=== PATIENT | male | born 1985 | race Caucasian/White ===

== ENCOUNTER 2016-10-23 09:30 | Emergency (ER) | payer MEDICAID ==
[~2016-10-23] VITALS: Ht 185.4 cm; Wt 136.1 kg
[~2016-10-23 09:30] MED LIST: METOPROLOL
[2016-10-23 09:49] VITALS: BP 146/98
[2016-10-23] MEDS ORDERED: IBUPROFEN 600 MG TAB PO ONE (10:30)
[2016-10-23] MEDS ORDERED: KETOROLAC TROMETH 60MG/2ML VIAL IM ONE (10:30)
== END 2016-10-23 11:31 | disposition home or self-care (01) ==
LOC: ER 09:34
DX: M25.562 Pain in left knee (principal); F17.210 Nicotine dependence, cigarettes, uncomplicated; F11.10 Opioid abuse, uncomplicated; I10 Essential (primary) hypertension; Z87.442 Personal history of urinary calculi
CPT/HCPCS: 73562; 96372; 99284; J1885

== ENCOUNTER 2016-11-22 10:02 | Emergency (ER) | payer MEDICAID ==
[~2016-11-22] VITALS: Ht 185.4 cm; Wt 140.6 kg
[2016-11-22] MEDS ORDERED: diphenhdrAMINE HCL 50 MG/1 ML VL ONE (10:04)
[2016-11-22] MEDS ORDERED: LORazepam 2MG/ML-1ML VIAL ONE (10:05)
[2016-11-22] MEDS ORDERED: SODIUM CHLORIDE 0.9% 1,000 ML IV ONE (10:06)
[2016-11-22] MEDS ORDERED: LORazepam 2MG/ML-1ML VIAL IV ONE (10:15)
[2016-11-22] MEDS ORDERED: diphenhdrAMINE HCL 50 MG/1 ML VL IV ONE ×2 (10:15→10:45)
[2016-11-22 10:16] LABS: Basophils # (auto) 0.1 uL; Basophils % (auto) 0.6 % (0.0-2.0); CONDITION Y; Eosinophils # (auto) 0 uL; Eosinophils % (auto) 0.2 % (0.0-7.0); Hematocrit 47.8 % (41.0-53.0); Hemoglobin 16.4 g/dL (13.5-17.5); Lymphocytes # (auto) 4.5 uL; Lymphocytes % (auto) 31.5 % (10.0-50.0); Mean Corpuscular Hemoglobin 30.5 pg (28.0-32.0); Mean Corpuscular Hgb Conc. 34.4 g/dL (32.0-36.0); Mean Corpuscular Volume 88.5 fL (80.0-100.0); Mean Platelet Volume 8.1 fL (7.4-10.4); Monocytes # (auto) 1.1 uL; Monocytes % (auto) 7.8 % (0.0-12.0); Neutrophils # (auto) 8.6 uL; Neutrophils % (auto) 59.9 % (37.0-80.0); Platelet Count (auto) 431 10^3/uL (140-450); Red Cell Distribution Width 14.1 % (11.6-16.0); White Blood Cell 14.4 10^3/uL (4.4-10.8)
[2016-11-22 10:27] VITALS: BP 116/84
[2016-11-22] MEDS ORDERED: HALOPERIDOL LACTATE 5 MG/ML INJ VIAL ONE (10:32)
[2016-11-22 10:35] LABS: Albumin 3.8 g/dL (3.4-5.0); BUN/Creatinine Ratio 8.3; Calcium 8.7 mg/dL (8.5-10.1); Potassium 3.4 mmol/L (3.5-5.1)
[2016-11-22 10:37] LABS: Bilirubin, Total 0.5 mg/dL (0.2-1.0); Total Protein 7.5 g/dL (6.4-8.2)
[2016-11-22] MEDS ORDERED: HALOPERIDOL LACTATE 5 MG/ML INJ VIAL IM ONE (10:45)
== END 2016-11-22 12:06 | disposition home or self-care (01) ==
LOC: ER 10:02
DX: F12.10 Cannabis abuse, uncomplicated (principal); R45.851 Suicidal ideations; F41.9 Anxiety disorder, unspecified; F32.9 Major depressive disorder, single episode, unspecified; I10 Essential (primary) hypertension; Z59.0 Homelessness; Z87.442 Personal history of urinary calculi; F10.10 Alcohol abuse, uncomplicated; F15.10 Other stimulant abuse, uncomplicated; F11.10 Opioid abuse, uncomplicated; F17.200 Nicotine dependence, unspecified, uncomplicated
CPT/HCPCS: 36415; 80053; 80307; 80320; 85025; 94761; 96361; 96372; 96374; 96375; 99284; J1200; J1630; J2060; J7030

== ENCOUNTER 2016-12-21 14:08 | Emergency (ER) | payer MEDICAID ==
[~2016-12-21] VITALS: Ht 185.4 cm; Wt 142.9 kg
[2016-12-21] MEDS ORDERED: ALPRAZolam 0.5 MG TAB PO ONE ×2 (20:00→22:00)
[2016-12-21 20:05] LABS: Urine Bilirubin Negative (Negative); Urine Blood Negative /uL (Negative); Urine Color Yellow (Yellow); Urine Glucose Normal (Normal); Urine Ketone Negative (Negative); Urine Mucus MODERATE (None Seen); Urine Nitrite Negative (Negative); Urine RBC 1 /hpf (0 - 3); Urine Squamous Epithelial Cell FEW /hpf (<5); Urine pH 6.5 (5.0-8.0)
[2016-12-21 20:17] LABS: Basophils # (auto) 0.1 uL; Basophils % (auto) 0.8 % (0.0-2.0); CONDITION Y; Eosinophils # (auto) 0.1 uL; Eosinophils % (auto) 0.4 % (0.0-7.0); Hemoglobin 16.3 g/dL (13.5-17.5); Lymphocytes # (auto) 4.8 uL; Lymphocytes % (auto) 30.7 % (10.0-50.0); Mean Corpuscular Hemoglobin 30.4 pg (28.0-32.0); Mean Corpuscular Hgb Conc. 33.8 g/dL (32.0-36.0); Mean Corpuscular Volume 89.8 fL (80.0-100.0); Mean Platelet Volume 8.6 fL (7.4-10.4); Monocytes # (auto) 1.2 uL; Monocytes % (auto) 7.5 % (0.0-12.0); Neutrophils # (auto) 9.4 uL; Neutrophils % (auto) 60.6 % (37.0-80.0); Platelet Count (auto) 280 10^3/uL (140-450); Red Cell Distribution Width 13.4 % (11.6-16.0); White Blood Cell 15.5 10^3/uL (4.4-10.8)
[2016-12-21 20:34] LABS: Albumin 4.2 g/dL (3.4-5.0); Anion Gap 10 (5-15); Aspartate Aminotransferase 33 U/L (15-37); Blood Urea Nitrogen 12 mg/dL (7-18); Calcium 9.2 mg/dL (8.5-10.1); Carbon Dioxide 25 mmol/L (21-32); Chloride 107 mmol/L (98-107); GFR African American 122 mL/min; GFR Non-African American 101 mL/min; Glucose 86 mg/dL (74-106); Potassium 3.5 mmol/L (3.5-5.1); Sodium 142 mmol/L (136-145)
[2016-12-21 20:37] LABS: Alkaline Phosphatase 65 U/L (45-117); Bilirubin, Total 0.5 mg/dL (0.2-1.0)
[2016-12-21 20:41] LABS: Acetaminophen < 2.0 ug/mL (10-30); Salicylate < 1.7 mg/dL (2.8-20.0)
[2016-12-22] MEDS ORDERED: ALPRAZolam 0.5 MG TAB PO ONE ×2 (11:00→14:00)
[2016-12-22] MEDS ORDERED: ALPRAZolam 0.5 MG TAB PO PRN (20:00)
[2016-12-23] MEDS ORDERED: ALPRAZolam 0.5 MG TAB PO ONE ×2 (06:30→23:00)
[2016-12-23] MEDS ORDERED: HYDROcodone-ACET 10/325MG TAB PO ONE (17:45)
[2016-12-23] MEDS ORDERED: ALPRAZolam 0.5 MG TAB ONE (22:55)
[2016-12-24] MEDS ORDERED: ALPRAZolam 0.5 MG TAB PO ONE (08:00)
[2016-12-24] MEDS ORDERED: ALPRAZolam 0.5 MG TAB PO SCH ×3 (08:00→08:15)
[2016-12-24] MEDS: ALPRAZolam 0.5 MG TAB PO SCH ×2 (08:22→19:57)
[2016-12-24] MEDS ORDERED: AMITRIPTYLINE HCL 25 MG TAB PO ONE (11:30)
[2016-12-24] MEDS ORDERED: LORazepam 0.5 MG TAB PO ONE (22:00)
[2016-12-25] MEDS: ALPRAZolam 0.5 MG TAB PO SCH (07:36)
[2016-12-25 08:00] VITALS: BP 123/89
== END 2016-12-25 08:16 | disposition home or self-care (01) ==
LOC: ER 14:08
DX: F32.9 Major depressive disorder, single episode, unspecified (principal); F19.10 Other psychoactive substance abuse, uncomplicated; F15.10 Other stimulant abuse, uncomplicated; I10 Essential (primary) hypertension; F11.10 Opioid abuse, uncomplicated; F12.10 Cannabis abuse, uncomplicated; F17.210 Nicotine dependence, cigarettes, uncomplicated; F41.9 Anxiety disorder, unspecified
CPT/HCPCS: 36415; 80053; 80307; 80320; 80329; 81001; 85025

== ENCOUNTER 2017-02-18 10:59 | Emergency (ER) | payer MEDICAID ==
[~2017-02-18] VITALS: Ht 185.4 cm; Wt 140.6 kg
[2017-02-18] MEDS ORDERED: SODIUM CHLORIDE 0.9% 1,000 ML IV ONE (11:22)
[2017-02-18] MEDS ORDERED: LORazepam 2MG/ML-1ML VIAL IV ONE ×2 (11:30→16:30)
[2017-02-18] MEDS ORDERED: OLANZapine 5 MG TAB PO ONE (11:30)
[2017-02-18 12:16] LABS: Basophils # (auto) 0.1 uL; Basophils % (auto) 0.5 % (0.0-2.0); Eosinophils # (auto) 0 uL; Eosinophils % (auto) 0.3 % (0.0-7.0); Hemoglobin 16.9 g/dL (13.5-17.5); Lymphocytes # (auto) 2.5 uL; Lymphocytes % (auto) 19.5 % (10.0-50.0); Mean Corpuscular Hemoglobin 30.7 pg (28.0-32.0); Mean Corpuscular Hgb Conc. 34.5 g/dL (32.0-36.0); Mean Corpuscular Volume 88.9 fL (80.0-100.0); Mean Platelet Volume 7.3 fL (6.9-10.8); Monocytes # (auto) 1.2 uL; Monocytes % (auto) 9.3 % (0.0-12.0); Neutrophils # (auto) 9.2 uL; Neutrophils % (auto) 70.4 % (37.0-80.0); Nucleated Red Blood Cells % 0.1 %; Platelet Count (auto) 428 10^3/uL (140-450); Red Cell Distribution Width 13.7 % (11.8-14.3); White Blood Cell 13.1 10^3/uL (4.4-10.8)
[2017-02-18 12:18] LABS: Urine Bilirubin Negative (Negative); Urine Blood Negative /uL (Negative); Urine Color Yellow (Yellow); Urine Glucose Normal (Normal); Urine Ketone Negative (Negative); Urine Mucus FEW (None Seen); Urine Nitrite Negative (Negative); Urine RBC <1 /hpf (0 - 3); Urine Squamous Epithelial Cell FEW /hpf (<5); Urine Urobilinogen Normal (Negative); Urine pH 6.5 (5.0-8.0)
[2017-02-18 12:38] LABS: Albumin 4.6 g/dL (3.4-5.0); BUN/Creatinine Ratio 13.1; Calcium 9.7 mg/dL (8.5-10.1); Magnesium 2.1 mg/dL (1.6-2.6)
[2017-02-18 12:41] LABS: Bilirubin, Total 0.8 mg/dL (0.2-1.0)
[2017-02-18 17:13] VITALS: BP 112/69
== END 2017-02-18 18:56 | disposition home or self-care (01) ==
LOC: ER 10:59 → EDBD 10:59 → ER 18:56
DX: F41.0 Panic disorder [episodic paroxysmal anxiety] (principal); F32.9 Major depressive disorder, single episode, unspecified; I10 Essential (primary) hypertension; F17.210 Nicotine dependence, cigarettes, uncomplicated; F12.10 Cannabis abuse, uncomplicated; F15.10 Other stimulant abuse, uncomplicated; F41.9 Anxiety disorder, unspecified; R45.851 Suicidal ideations; E66.9 Obesity, unspecified; Z68.41 Body mass index [BMI] 40.0-44.9, adult
CPT/HCPCS: 36415; 80053; 80307; 81001; 83735; 85025; 96361; 96374; 96375; 99284; J2060; J7030